=== PATIENT | female | born 1970 | race Two or more races ===

== ENCOUNTER 2023-09-10 12:55 | Emergency (ER) | payer OTHER ==
[~2023-09-10] VITALS: Ht 170.2 cm; Wt 90.7 kg
[2023-09-10] MEDS ORDERED: LIPITOR20 MG PO (13:44)
[2023-09-10] MEDS ORDERED: SINGULAIR10 MG PO (13:44)
[2023-09-10] MEDS ORDERED: ZESTRIL2.5 MG (13:44)
[2023-09-10] MEDS ORDERED: ECOTRIN81 MG (13:45)
[2023-09-10 14:42] LABS: HEMATOCRIT 37.5 % (36.0-45.00); HEMOGLOBIN 12.5 g/dL (12.0-15.00); MEAN CELL VOLUME 80.9 fL (80.00-100.00); MEAN CORPUSCULAR HGB CONC 33.3 g/dl (32.0-36.0); PLATELET COUNT 252 K/uL (150-450); RED BLOOD COUNT 4.64 M/uL (4.00-6.00); RED CELL DISTRIBUTION WIDTH 14.1 % (11.5-14.5)
== END 2023-09-10 16:25 | disposition home or self-care (01) ==
LOC: ER 12:56
PROVIDERS: Emergency Medicine
DX: U07.1 COVID-19 (principal)

== ENCOUNTER 2024-01-23 13:00 | Outpatient (CLI) | payer OTHER ==
[~2024-01-23 13:00] MED LIST: ECOTRIN81 MG; LIPITOR20 MG PO; SINGULAIR10 MG PO; ZESTRIL2.5 MG
== END 2024-01-23 13:10 | disposition home or self-care (01) ==
LOC: PPH VACUNA 13:00
PROVIDERS: ATTEND Emergency Medicine Pediatric Emergency Medicine
DX: Z23 Encounter for immunization (principal)

== ENCOUNTER 2024-08-20 10:28 | Outpatient (CLI) | payer OTHER | END 2024-08-20 10:33 | disposition home or self-care (01) | LOC: RAD 10:28 | DX: M54.50 Low back pain, unspecified (principal) ==

== ENCOUNTER 2024-08-26 11:13 | Outpatient (CLI) | payer OTHER | END 2024-08-26 11:16 | disposition home or self-care (01) | LOC: RAD 11:13 | DX: M25.562 Pain in left knee (principal) ==

== ENCOUNTER 2024-12-09 14:32 | Outpatient (CLI) | payer OTHER | END 2024-12-09 14:43 | disposition home or self-care (01) | LOC: MRI 14:32 | PROVIDERS: ATTEND Orthopaedic Surgery | DX: M25.561 Pain in right knee (principal) | CPT/HCPCS: 73721 ==